=== PATIENT | male | born 1990 | race Caucasian/White ===

== ENCOUNTER 2018-03-05 21:57 | Emergency (ER) | payer BC ==
[2018-03-05 22:20] VITALS: BP 113/75; PULSE 103; TEMP 97.4; BMI 24.3
--- NOTE | 2018-03-05 22:49 | PDOC ---
Attending Attestation - Resident Resident Name: Jimy Oseguera - ED Attending Attestation I have performed the following: I have examined & evaluated the patient, The case was reviewed & discussed with the resident, I agree w/resident's findings & plan, Exceptions are as noted - HPI HPI: 03/05/18 22:47 27 yo male had a seizure according tohis mother. He exhibited shaking extremities . Pt is alert and conversant at this time He had a similar episode 3 weeks and had a ct scan of the head at another hospital . the mother and pt report the ct scan was normal -the pt and his mother states that the pt has been abusing xanax and stopped it 3-4 days ago 03/05/18 23:02 03/05/18 23:29 - Physicial Exam PE: 03/05/18 22:50 wnwd 27 yo male seated on the gurney in no distress head ncat eyes alma eomi neck no c spine midline tenderness abd flat ,nontender cvs rrr s1s2 lungs cta b/l extremities no deformities,motor strength 5/5, b/l neuro axox3, no drift,no clonus skin warm and dry 03/05/18 22:52 - Medical Decision Making 03/05/18 23:20 pt needs eeg study and he does have a referral for neurology but has not gone yet it was explained to the pt and his mother that he needs to follow up with a neurologist for further evaluatoin 03/05/18 23:30 imp xanax withdrawl seizure
--- NOTE | 2018-03-05 22:51 | PDOC ---
History of Present Illness - General Chief Complaint: Seizure Stated Complaint: SEIZURE Time Seen by Provider: 03/05/18 22:04 History Source: Patient Exam Limitations: No Limitations - History of Present Illness Initial Comments: 03/05/18 22:41 Patient is a 27M with history of one prior seizure and xanax abuse here today complaining of a seizure. He states that he does not know what happened, he was simply on the floor. His mom reports hearing the patient fall and found him shaking on the ground for 3-5 minutes. Denies tongue biting and urinary incontinence. Patient was worked up at [facility] including a negative head ct 3 weeks ago after having a seizure in a car. Patient has no prior seizure history. Patient states that his last use of xanax was 3-4 days ago. Denies shaking, hallucinations, fevers, chills, nausea, vomiting. Seizure resolved with no medication in the field. Patient is back to baseline. Past History - Suicide/Smoking/Psychosocial Hx Smoking History: Unknown if ever smoked Have you smoked in the past 12 months: No Information on smoking cessation initiated: No Hx Alcohol Use: Yes Drug/Substance Use Hx: Yes Review of Systems - Review of Systems Comments:: 03/05/18 22:51 GENERAL/CONSTITUTIONAL: No fever or chills. No weakness. HEAD, EYES, EARS, NOSE AND THROAT: No change in vision. No sore throat. CARDIOVASCULAR: No chest pain or shortness of breath RESPIRATORY: No cough, wheezing, or hemoptysis. GASTROINTESTINAL: No nausea, vomiting, diarrhea or constipation. GENITOURINARY: No dysuria, frequency, or change in urination. MUSCULOSKELETAL: No joint or muscle swelling or pain. No neck or back pain. SKIN: No rash NEUROLOGIC: No headache, vertigo, loss of consciousness, or change in strength/ sensation. ENDOCRINE: No increased thirst. No abnormal weight change HEMATOLOGIC/LYMPHATIC: No anemia, easy bleeding, or history of blood clots. ALLERGIC/IMMUNOLOGIC: No hives or skin allergy. *Physical Exam - Vital Signs Last Vital Signs Temp Pulse Resp BP Pulse Ox 97.4 F L 103 H 16 113/75 97 03/05/18 21:59 03/05/18 21:59 03/05/18 21:59 03/05/18 21:59 03/05/18 21:59 - Physical Exam Comments: 03/05/18 22:51 GENERAL: Awake, alert, and fully oriented, in no acute distress HEAD: No signs of trauma, normocephalic, atraumatic EYES: PERRLA, EOMI, sclera anicteric, conjunctiva clear ENT: Auricles normal inspection, hearing grossly normal, nares patent, oropharynx clear without exudates. Moist mucosa NECK: Normal ROM, supple, no lymphadenopathy, JVD, or masses LUNGS: No distress, speaks full sentences, clear to auscultation bilaterally HEART: Regular rate and rhythm, normal S1 and S2, no murmurs, rubs or gallops, peripheral pulses normal and equal bilaterally. ABDOMEN: Soft, nontender, normoactive bowel sounds. No guarding, no rebound. No masses EXTREMITIES: Normal inspection, Normal range of motion, no edema. No clubbing or cyanosis. NEUROLOGICAL: Cranial nerves II through XII grossly intact. Normal speech, normal gait, no focal sensorimotor deficits SKIN: Warm, Dry, normal turgor, no rashes or lesions noted. ED Treatment Course - LABORATORY CBC & Chemistry Diagram: 03/05/18 22:25 03/05/18 22:25 - RADIOLOGY Radiology Studies Ordered: Category Date Time Status CHEST X-RAY PORTABLE* [RAD] Stat Radiology 03/05/18 22:16 Ordered Medical Decision Making - Medical Decision Making 03/05/18 22:52 Patient is a 27M with history of one prior seizure and xanax abuse here today with possible seizure. Vitals normal and stable. Exam normal. Patient feels like he is at baseline, mom agrees. Will workup with basic labs, ekg, cxr. Head CT deferred given patient's recent head ct, no signs of major trauma. DDx includes, but is not limited to: primary seizure disorder, benzo withdrawal, PNES. Likely discharge with neuro follow up. 03/05/18 23:16 EKG shows sinus tachycardia with a rate of 104. No st elevations/depressions. Normal axis. Normal intervals. No significant t wave abnormalities. 03/05/18 23:25 Laboratory Tests 03/05/18 03/05/18 22:25 22:25 WBC 16.9 H Hgb 17.4 H Plt Count 322 BUN 13 Creatinine 1.3 Creat Clearance w eGFR > 60 Random Glucose 119 H Troponin I < 0.02 CBC shows hemoconcentration, likely dehydrated. Given PO hydration, HR now in 80s. CMP unremarkable. Troponin undetectable. Patient to go to rehab tomorrow. Cause of seizure activity still unclear, but no signs of benzo withdrawal at this time. Lactic acid 6.0, PNES safely ruled out. Will discharge with neuro follow up, rehab and plans to do EEG. *DC/Admit/Observation/Transfer Diagnosis at time of Disposition: Seizure - Discharge Dispostion Disposition: HOME Condition at time of disposition: Good - Referrals Referrals: Abiodun Rios MD [Staff Physician] - - Patient Instructions Printed Discharge Instructions: DI for Seizure Disorder -- Adult Additional Instructions: You were seen today in the ED for a seizure. Please avoid driving, swimming, ladders and other activities where a seizure may be catastrophic. Please follow up with neurology as soon as possible. Please return if you have any new, worsening or concerning symptoms. - Post Discharge Activity
[2018-03-05 22:52] LABS: BASO % 0.3 % (0-2.0); EOS % 0.1 % (0-4.5); HEMATOCRIT 52.2 % (35.4-49); HEMOGLOBIN 17.4 GM/dL (11.7-16.9); LYMPH % 26.2 % (8-40); MCH 28.4 pg (25.7-33.7); MCHC 33.3 g/dl (32.0-35.9); MEAN CELL VOLUME 85.2 fl (80-96); MONO % 4.6 % (3.8-10.2); NEUT % 68.8 % (42.8-82.8); PLATELET COUNT 322 K/MM3 (134-434); RBC 6.13 M/mm3 (4.00-5.60); RDW 13.7 % (11.9-15.9); WHITE BLOOD COUNT 16.9 K/mm3 (4.0-10.0)
[2018-03-05 23:04] LABS: INR 1.09 (0.83-1.09); PROTHROMBIN TIME (PATIENT) 12.9 SEC (9.7-13.0)
[2018-03-05 23:19] LABS: ALBUMIN 4.5 g/dl (3.4-5.0); ALK PHOS 108 U/L (45-117); ANION GAP 13 MMOL/L (8-16); BILIRUBIN,TOTAL 0.6 mg/dL (0.2-1); BLOOD UREA NITROGEN 13 mg/dL (7-18); CHLORIDE 101 mmol/L (98-107); CO2 23 mmol/L (21-32); CREATININE 1.3 mg/dL (0.55-1.3); GLUCOSE,RANDOM 119 mg/dL (74-106); MAGNESIUM 2.5 mg/dL (1.8-2.4); POTASSIUM 3.7 mmol/L (3.5-5.1); SGOT/AST 12 U/L (15-37); SGPT/ALT 18 U/L (13-61); SODIUM 138 mmol/L (136-145); TOT PROT 7.9 g/dl (6.4-8.2)
--- NOTE | 2018-03-06 12:51 | EKG ---
Test Reason : Blood Pressure : / mmHG Vent. Rate : 104 BPM Atrial Rate : 104 BPM P-R Int : 120 ms QRS Dur : 086 ms QT Int : 336 ms P-R-T Axes : 074 077 013 degrees QTc Int : 441 ms SINUS TACHYCARDIA POSSIBLE LEFT ATRIAL ENLARGEMENT T WAVE ABNORMALITY, CONSIDER INFERIOR ISCHEMIA ABNORMAL ECG Confirmed by MD BELA, ERI ([id number]) on 03/06/2018 12:51:15 PM Referred By: Confirmed By:ERI CRAMER MD
== END 2018-03-05 23:41 | disposition home or self-care (01) ==
LOC: JER 21:57
DX: R56.9 Unspecified convulsions (principal); F13.10 Sedative, hypnotic or anxiolytic abuse, uncomplicated
CPT/HCPCS: 36415; 80053; 82550; 83605; 83735; 84484; 85025; 85610; 93005; 93010; 99283-25

== ENCOUNTER 2024-12-28 13:47 | Inpatient (IN) | payer OTHER ==
[2024-12-28 14:28] VITALS: BMI 21.2
[2024-12-28] MEDS ORDERED: MAGNESIUM HYDROX 2400MG/30ML ORAL SUSPENSION 30 ML CUP PO PRN (14:57)
[2024-12-28] MEDS ORDERED: guaiFENesin 600 MG TABLET.ER (FP) PO PRN (14:57)
[2024-12-28] MEDS ORDERED: DICYCLOMINE HCL 10 MG CAPSULE PO PRN (14:57)
[2024-12-28] MEDS ORDERED: NICOTINE POLACRILEX 2 MG LOZENGE BC PRN (14:57)
[2024-12-28] MEDS ORDERED: MAG HYDROX/AL HYDROX/SIMETH 30 ML UNIT-DOSE CUP PO PRN (14:57)
[2024-12-28] MEDS ORDERED: IBUPROFEN 600 MG TABLET (FP) PO PRN (14:57)
[2024-12-28] MEDS ORDERED: BENZONATATE 200 MG CAPSULE PO PRN (14:57)
[2024-12-28] MEDS ORDERED: NICOTINE POLACRILEX 2 MG GUM BUC PRN (14:57)
[2024-12-28] MEDS ORDERED: BISMUTH SUBSALICYLATE 524 MG/30 ML PO PRN (14:57)
[2024-12-28] MEDS ORDERED: ONDANSETRON *ODT* 4 MG TABLET SL PRN (14:57)
[2024-12-28] MEDS ORDERED: IBUPROFEN 400 MG TABLET (FP) PO PRN (14:57)
[2024-12-28] MEDS ORDERED: BENZOCAINE/MENTHOL (CHLORASEPTIC ) LOZENGE MM PRN (14:57)
[2024-12-28] MEDS ORDERED: POLYETHYLENE GLYCOL (HEALTHYLAX) 3350 17 GM PACKET PO PRN (14:57)
[2024-12-28] MEDS ORDERED: LOPERAMIDE HCL 2 MG CAPSULE PO PRN (14:57)
[2024-12-28] MEDS ORDERED: NALOXONE (NARCAN) HCL 4 MG/0.1 ML SPRAY NS PRN (14:57)
[2024-12-28] MEDS ORDERED: ACETAMINOPHEN 325 MG TABLET (FP) PO PRN (14:57)
[2024-12-28] MEDS: THIAMINE 100 MG TABLET PO SCH (23:24)
[2024-12-28] MEDS: MELATONIN 5 MG TABLETS PO SCH (23:24)
[2024-12-28] MEDS: hydrOXYzine PAMOATE 25 MG CAPSULE (FP) PO PRN (23:25)
[2024-12-28] MEDS: METHOCARBAMOL 500 MG TABLET PO PRN (23:25)
[2024-12-29] MEDS: PRENATAL VITAMINS W/ FOLIC ACID TABLET (FP) PO SCH (10:04)
[2024-12-30 09:57] LABS: MCHC 32.7 g/dl (32.3-36.5); MEAN CELL VOLUME 85.7 fl (79.0-92.2); MEAN PLT VOLUME 10.3 fl (9.4-12.4); RDW 13.2 % (12.0-15.6)
[2024-12-30 10:13] LABS: GLUCOSE,RANDOM 97.0 mg/dL (74-106); TOT PROT 7.4 g/dl (6.4-8.2)
[2024-12-30 10:14] LABS: CO2 24.0 mmol/L (21-32)
[2024-12-30 10:16] LABS: ALK PHOS 101.0 U/L (40-150)
[2024-12-30 10:19] LABS: CREATININE 0.57 mg/dL (0.55-1.3); SGOT/AST 18.0 U/L (5-34); SGPT/ALT 10.0 U/L (0-55)
[2024-12-30] MEDS: SUVOREXANT 10 MG TABLET PO PRN (21:46)
[2024-12-31 05:50] VITALS: RESP 16
[2024-12-31 09:38] VITALS: BP 125/82; PULSE 118; TEMP 97.6
== END 2024-12-31 09:21 | disposition left against medical advice (07) | DRG 770 ==
LOC: YASAS 13:47 → Y3N 17:15
PROVIDERS: ADMIT Neuromusculoskeletal Medicine & OMM; ATTEND Allergy & Immunology
PROC: HZ2ZZZZ Detoxification Services for Substance Abuse Treatment (ICD-10-PCS; principal; 2024-12-28)
DX: F11.23 Opioid dependence with withdrawal (principal); F14.20 Cocaine dependence, uncomplicated; F12.20 Cannabis dependence, uncomplicated; F17.210 Nicotine dependence, cigarettes, uncomplicated; F19.282 Other psychoactive substance dependence with psychoactive substance-induced sleep disorder; F19.280 Other psychoactive substance dependence with psychoactive substance-induced anxiety disorder; F19.24 Other psychoactive substance dependence with psychoactive substance-induced mood disorder; Z59.00 Homelessness unspecified; Z56.0 Unemployment, unspecified
CPT/HCPCS: 36415; 80053; 85027; 86780; 93005; 93010